=== PATIENT | female | born 2000 | race Caucasian/White ===

== ENCOUNTER 2021-12-26 12:30 | Inpatient (IN) | payer OTHER ==
[2021-12-26 13:56] VITALS: BMI 19.8
[2021-12-26] MEDS ORDERED: ONDANSETRON *ODT* 4 MG TABLET SL PRN (15:27)
[2021-12-26] MEDS ORDERED: NALOXONE HCL (KLOXXADO) 8 MG SPRAY NS PRN (15:27)
[2021-12-26] MEDS ORDERED: MAGNESIUM HYDROX 2400MG/30ML ORAL SUSPENSION 30 ML CUP PO PRN (15:27)
[2021-12-26] MEDS ORDERED: ACETAMINOPHEN 325 MG TABLET (FP) PO PRN ×2 (15:27)
[2021-12-26] MEDS ORDERED: IBUPROFEN 600 MG TABLET (FP) PO PRN (15:27)
[2021-12-26] MEDS ORDERED: NICOTINE 10 MG CARTRIDGE (INHALER) IH PRN (15:27)
[2021-12-26] MEDS ORDERED: MAG HYDROX/AL HYDROX/SIMETH 30 ML UNIT-DOSE CUP PO PRN (15:27)
[2021-12-26] MEDS ORDERED: BENZOCAINE/MENTHOL (CHLORASEPTIC ) LOZENGE MM PRN (15:27)
[2021-12-26] MEDS ORDERED: IBUPROFEN 400 MG TABLET (FP) PO PRN (15:27)
[2021-12-26] MEDS ORDERED: LOPERAMIDE HCL 2 MG CAPSULE PO PRN (15:27)
[2021-12-26] MEDS ORDERED: DICYCLOMINE HCL 10 MG CAPSULE PO PRN (15:27)
[2021-12-26] MEDS ORDERED: MAGNESIUM CITRATE 300 ML BOTTLE PO PRN (15:27)
[2021-12-26] MEDS ORDERED: METHOCARBAMOL 500 MG TABLET PO PRN (15:27)
[2021-12-26] MEDS ORDERED: BISMUTH SUBSALICYLATE 262 MG/15 ML BTL PO PRN (15:27)
[2021-12-26] MEDS ORDERED: PRENATAL VITAMINS W/ FOLIC ACID TABLET (FP) PO SCH (15:30)
[2021-12-26] MEDS ORDERED: hydrOXYzine PAMOATE 25 MG CAPSULE (FP) PO SCH (18:00)
[2021-12-26 18:26] VITALS: BP 105/63; PULSE 87; RESP 18; TEMP 98
[2021-12-26] MEDS ORDERED: MELATONIN 5 MG TABLETS PO SCH (22:00)
[2021-12-26] MEDS ORDERED: THIAMINE HCL 100 MG TABLET (FP) PO SCH (22:00)
== END 2021-12-26 18:07 | disposition left against medical advice (07) | DRG 770 ==
LOC: YASAS 12:30 → Y3N 16:20
PROVIDERS: ADMIT Allergy & Immunology; ATTEND Surgery
PROC: HZ2ZZZZ Detoxification Services for Substance Abuse Treatment (ICD-10-PCS; principal; 2021-12-26)
DX: F10.230 Alcohol dependence with withdrawal, uncomplicated (principal); F12.20 Cannabis dependence, uncomplicated; Z91.51 Personal history of suicidal behavior
CPT/HCPCS: 81025; C9803-CS; U0003; U0005

== ENCOUNTER 2023-12-25 15:08 | Inpatient (IN) | payer OTHER ==
[2023-12-25 15:41] VITALS: BMI 21.9
[2023-12-25] MEDS ORDERED: MAGNESIUM HYDROX 2400MG/30ML ORAL SUSPENSION 30 ML CUP PO PRN (16:12)
[2023-12-25] MEDS ORDERED: DICYCLOMINE HCL 10 MG CAPSULE PO PRN (16:12)
[2023-12-25] MEDS ORDERED: ONDANSETRON *ODT* 4 MG TABLET SL PRN (16:12)
[2023-12-25] MEDS ORDERED: MAG HYDROX/AL HYDROX/SIMETH 30 ML UNIT-DOSE CUP PO PRN (16:12)
[2023-12-25] MEDS ORDERED: BENZONATATE 200 MG CAPSULE PO PRN (16:12)
[2023-12-25] MEDS ORDERED: hydrOXYzine PAMOATE 25 MG CAPSULE (FP) PO PRN (16:12)
[2023-12-25] MEDS ORDERED: guaiFENesin 600 MG TABLET.ER (FP) PO PRN (16:12)
[2023-12-25] MEDS ORDERED: POLYETHYLENE GLYCOL (HEALTHYLAX) 3350 17 GM PACKET PO PRN (16:12)
[2023-12-25] MEDS ORDERED: BISMUTH SUBSALICYLATE 524 MG/30 ML PO PRN (16:12)
[2023-12-25] MEDS ORDERED: chlordiazePOXIDE HCL 25 MG CAPSULE PO PRN (16:12)
[2023-12-25] MEDS ORDERED: NALOXONE (NARCAN) HCL 4 MG/0.1 ML SPRAY NS PRN (16:12)
[2023-12-25] MEDS ORDERED: BENZOCAINE/MENTHOL (CHLORASEPTIC ) LOZENGE MM PRN (16:12)
[2023-12-25] MEDS ORDERED: METHOCARBAMOL 500 MG TABLET PO PRN (16:12)
[2023-12-25] MEDS ORDERED: IBUPROFEN 600 MG TABLET (FP) PO PRN (16:12)
[2023-12-25] MEDS ORDERED: IBUPROFEN 400 MG TABLET (FP) PO PRN (16:12)
[2023-12-25] MEDS ORDERED: LOPERAMIDE HCL 2 MG CAPSULE PO PRN (16:12)
[2023-12-25] MEDS ORDERED: ACETAMINOPHEN 325 MG TABLET (FP) PO PRN (16:12)
[2023-12-25] MEDS: NALOXONE (NYS OPIOID OVERDOSE PROGRAM) 4 MG/0.1 ML SPRAY NS ONE (17:47)
[2023-12-25] MEDS: MELATONIN 5 MG TABLETS PO SCH (22:17)
[2023-12-25] MEDS: THIAMINE 100 MG TABLET PO SCH (22:17)
[2023-12-25] MEDS: chlordiazePOXIDE HCL 25 MG CAPSULE PO SCH (22:18)
[2023-12-26] MEDS: NALTREXONE HCL 50 MG TABLET PO SCH (10:13)
[2023-12-26] MEDS: PRENATAL VITAMINS W/ FOLIC ACID TABLET (FP) PO SCH (10:13)
[2023-12-26 12:12] LABS: HEMATOCRIT 34.3 % (32.4-45.2); HEMOGLOBIN 11.3 GM/dL (10.7-15.3); MCH 28.3 pg (25.7-33.7); MCHC 33.1 g/dl (32.0-36.0); MEAN CELL VOLUME 85.7 fl (80-96); MEAN PLT VOLUME 9.6 fl (7.5-11.1); PLATELET COUNT 111 10^3/uL (134-434); RBC 4.01 M/mm3 (3.60-5.2); RDW 16.8 % (11.6-15.6); WHITE BLOOD COUNT 3.6 K/mm3 (4.0-10.0)
[2023-12-26 14:38] LABS: CHLORIDE 108 mmol/L (98-107); POTASSIUM 3.6 mmol/L (3.5-5.1); SODIUM 139 mmol/L (136-145)
[2023-12-26 14:40] LABS: ALBUMIN 3.7 g/dl (3.4-5.0); CALCIUM 8.7 mg/dL (8.5-10.1)
[2023-12-26 14:41] LABS: ANION GAP 7 mmol/L (4-13); CO2 24 mmol/L (21-32); GLUCOSE,RANDOM 102 mg/dL (74-106)
[2023-12-26 14:43] LABS: SGOT/AST 72 U/L (15-37); SGPT/ALT 37 U/L (13-61)
[2023-12-26 14:44] LABS: CREATININE 0.6 mg/dL (0.55-1.3)
[2023-12-26 14:45] LABS: BILIRUBIN,TOTAL 0.7 mg/dL (0.2-1); TOT PROT 6.7 g/dl (6.4-8.2)
[2023-12-26 14:46] LABS: ALK PHOS 63 U/L (45-117)
[2023-12-26] MEDS: HYDROCORTISONE 0.5% TOPICAL CREAM 30 GM TUBE TP PRN (22:11)
[2023-12-27] MEDS: chlordiazePOXIDE HCL 25 MG CAPSULE PO SCH (05:21)
[2023-12-28] MEDS ORDERED: chlordiazePOXIDE HCL 10 MG CAPSULE PO PRN
[2023-12-28] MEDS: chlordiazePOXIDE HCL 10 MG CAPSULE PO SCH (05:37)
[2023-12-28] MEDS: NALOXONE (NYS OPIOID OVERDOSE PROGRAM) 4 MG/0.1 ML SPRAY NS ONE (13:08)
[2023-12-28] MEDS ORDERED: NALOXONE (NYS OPIOID OVERDOSE PROGRAM) 4 MG/0.1 ML SPRAY NS PRN (14:35)
[2023-12-29] MEDS: chlordiazePOXIDE HCL 10 MG CAPSULE PO SCH (05:20)
[2023-12-30] MEDS: chlordiazePOXIDE HCL 10 MG CAPSULE PO ONE (05:50)
[2023-12-30 06:15] VITALS: PULSE 81; RESP 16
[2023-12-30 08:59] VITALS: BP 107/66; TEMP 97.3
== END 2023-12-30 09:21 | disposition home or self-care (01) | DRG 775 ==
LOC: YASAS 15:08 → Y3N 17:12
PROVIDERS: ADMIT Allergy & Immunology; ATTEND Surgery
PROC: HZ2ZZZZ Detoxification Services for Substance Abuse Treatment (ICD-10-PCS; principal; 2023-12-25)
DX: F10.230 Alcohol dependence with withdrawal, uncomplicated (principal); F12.20 Cannabis dependence, uncomplicated; F17.210 Nicotine dependence, cigarettes, uncomplicated; F41.9 Anxiety disorder, unspecified; Z91.51 Personal history of suicidal behavior
CPT/HCPCS: 36415; 71045-TC-FY; 80053; 80305; 80307; 81025; 85027; 86780; 93005; 93010

== ENCOUNTER 2023-12-31 16:52 | Inpatient (IN) | payer OTHER ==
[2023-12-31 17:15] VITALS: BMI 21.9
[2023-12-31] MEDS ORDERED: BENZONATATE 200 MG CAPSULE PO PRN (19:11)
[2023-12-31] MEDS ORDERED: POLYETHYLENE GLYCOL (HEALTHYLAX) 3350 17 GM PACKET PO PRN (19:11)
[2023-12-31] MEDS ORDERED: BENZOCAINE/MENTHOL (CHLORASEPTIC ) LOZENGE MM PRN (19:11)
[2023-12-31] MEDS ORDERED: hydrOXYzine PAMOATE 25 MG CAPSULE (FP) PO PRN (19:11)
[2023-12-31] MEDS ORDERED: IBUPROFEN 400 MG TABLET (FP) PO PRN (19:11)
[2023-12-31] MEDS ORDERED: METHOCARBAMOL 500 MG TABLET PO PRN (19:11)
[2023-12-31] MEDS ORDERED: MAGNESIUM HYDROX 2400MG/30ML ORAL SUSPENSION 30 ML CUP PO PRN (19:11)
[2023-12-31] MEDS ORDERED: guaiFENesin 600 MG TABLET.ER (FP) PO PRN (19:11)
[2023-12-31] MEDS ORDERED: ACETAMINOPHEN 325 MG TABLET (FP) PO PRN (19:11)
[2023-12-31] MEDS ORDERED: MAG HYDROX/AL HYDROX/SIMETH 30 ML UNIT-DOSE CUP PO PRN (19:11)
[2023-12-31] MEDS ORDERED: LOPERAMIDE HCL 2 MG CAPSULE PO PRN (19:11)
[2023-12-31] MEDS ORDERED: IBUPROFEN 600 MG TABLET (FP) PO PRN (19:11)
[2023-12-31] MEDS: MELATONIN 5 MG TABLETS PO SCH (22:51)
[2023-12-31] MEDS: THIAMINE 100 MG TABLET PO SCH (22:51)
[2024-01-01] MEDS: methaDONE HCL 10 MG TABLET PO SCH (08:26)
[2024-01-01] MEDS: PRENATAL VITAMINS W/ FOLIC ACID TABLET (FP) PO SCH (09:18)
[2024-01-04] MEDS: GABAPENTIN 100 MG CAPSULE PO SCH (21:18)
[2024-01-05] MEDS: SERTRALINE HCL 25 MG TABLET (FP) PO SCH (10:13)
[2024-01-10] MEDS: GABAPENTIN 300 MG CAPSULE PO SCH (21:37)
[2024-01-21 06:58] VITALS: BP 100/66; PULSE 81; RESP 18; TEMP 97.6
== END 2024-01-21 13:15 | disposition home or self-care (01) | DRG 772 ==
LOC: YASAS 16:52 → Y3NR 20:54 → Y5N 01-01 14:09
PROVIDERS: ADMIT Allergy & Immunology; ATTEND Psychiatry & Neurology Pain Medicine
PROC: HZ42ZZZ Group Counseling for Substance Abuse Treatment, Cognitive-Behavioral (ICD-10-PCS; principal; 2023-12-31)
DX: F10.20 Alcohol dependence, uncomplicated (principal); F17.290 Nicotine dependence, other tobacco product, uncomplicated; F41.9 Anxiety disorder, unspecified; R45.851 Suicidal ideations; Z91.51 Personal history of suicidal behavior
CPT/HCPCS: 80305; 81025; 87811